=== PATIENT | male | born 1975 | race African-American/Black ===

== ENCOUNTER 2019-04-22 16:41 | Emergency (ER) | payer OTHER ==
[~2019-04-22] VITALS: Ht 167.6 cm; Wt 86.2 kg
[2019-04-22] MEDS ORDERED: AMITRIPTYLINE H10 M1 PO (16:56)
[2019-04-22] MEDS ORDERED: MULTIVITAMINS1 EAC7 PO (16:57)
[2019-04-22] MEDS ORDERED: AMITRIPTYLINE H25 M4 PO (17:07)
[2019-04-22] MEDS ORDERED: AMLOD-VALSA-HC1 EAC2 PO (17:08)
[2019-04-22 17:21] LABS: ABSOLUTE NEUTROPHILS 2.6 thou/uL (1.4-8.2); BASOPHILS 1.1 % (0.0-2.0); EOSINOPHILS 5.4 % (0.0-3.0); HEMATOCRIT 45.3 % (42.0-52.0); HEMOGLOBIN 15.2 gm/dL (14.0-18.0); LYMPHOCYTES 32.4 % (24.0-44.0); MCH 29.4 pg (26.0-34.0); MCHC 33.6 g/dL (28.0-37.0); MCV 87.5 fL (80.0-100.0); MONOCYTES 10.3 % (1.0-8.0); PLATELET COUNT 193 thou/uL (150-400); POLYS 50.8 % (36.0-66.0); RBC 5.18 mil/uL (4.50-6.00); RDW 13.7 % (10.5-14.5); WBC 5.1 thou/uL (4.0-11.0)
[2019-04-22 17:22] LABS: ANION GAP 6 mmol/L (7-16); BUN 15 mg/dL (7-18); CALCIUM 9.4 mg/dL (8.5-10.1); CHLORIDE 99 mmol/L (98-107); CO2 30 mmol/L (21-32); GLUCOSE 91 mg/dL (74-106); POTASSIUM 3.3 mmol/L (3.5-5.1); SODIUM 135 mmol/L (136-145)
[2019-04-22 17:32] LABS: SGOT 28 U/L (15-37); SGPT 35 U/L (30-65); TOTAL BILIRUBIN 0.7 mg/dL (<0.1-1.0); TOTAL PROTEIN 9.8 g/dL (6.4-8.2); TROPONIN-I <0.06 ng/mL (<0.06)
[2019-04-22] MEDS ORDERED: MOBIC7.5 MG PO (19:13)
[2019-04-22 19:28] VITALS: BP 128/89
--- NOTE | 2019-04-23 08:04 | EKG ---
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 04/23/19 0804 164 41 Delgado Middleton MD, FACC /EPI
--- NOTE | 2019-04-23 08:05 | EKG ---
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
== END 2019-04-22 19:25 | disposition home or self-care (01) ==
LOC: ER 16:41
PROVIDERS: Nurse Practitioner Family
DX: R07.89 Other chest pain (principal); I10 Essential (primary) hypertension; E78.5 Hyperlipidemia, unspecified